=== PATIENT | male | born 2000 | race Caucasian/White ===

== ENCOUNTER 2020-10-22 17:00 | Emergency (ER) | payer BC ==
[2020-10-22 17:14] VITALS: BP 130/79; PULSE 89; RESP 16; TEMP 98.3
--- NOTE | 2020-10-22 17:46 | ED ---
ENT HPI - General Chief complaint: Dental/Oral Stated complaint: Post Op Bleeding Time Seen by Provider: 10/22/20 17:16 Source: patient, RN notes reviewed Mode of arrival: ambulatory Limitations: no limitations - History of Present Illness Initial comments: Patient is a 20-year-old male that presents to emergency department with lower lip bleeding. He notes that he recently had a biopsy done approximately 2 days ago at [facility] by Dr. Alexandro Johns. He noted that today his lip started bleeding so he thought some of the stitches might popped so he was on his way to the office and they said they're closing a 4:30 so they can emergency room just to get checked out. He was in no apparent distress or pain. He was playing with his lip with his hand tongue and teeth very frequently even after informing him that this could cause it to bleed more. He denied any chest pain first breath headache nausea vomiting diarrhea c onstipation fever fatigue chills. - Related Data Allergies Allergy/AdvReac Type Severity Reaction Status Date / Time amoxicillin Allergy Unknown Verified 10/22/20 17:14 Review of Systems ROS Statement: Those systems with pertinent positive or pertinent negative responses have been documented in the HPI. ROS Other: All systems not noted in ROS Statement are negative. Past Medical History Additional Past Medical History / Comment(s): DRY MOUTH History of Any Multi-Drug Resistant Organisms: None Reported Past Surgical History: Ear Surgery, Hernia Repair Past Psychological History: No Psychological Hx Reported Smoking Status: Never smoker Past Alcohol Use History: None Reported Past Drug Use History: None Reported General Exam Limitations: no limitations General appearance: alert, in no apparent distress Head exam: Present: atraumatic, normocephalic, normal inspection Eye exam: Present: normal appearance, PERRL, EOMI. Absent: scleral icterus, conjunctival injection, periorbital swelling ENT exam: Present: normal exam, mucous membranes moist, other (Patient has a well approximated surgical site on the inside of the lower lip that is nonblee ding at this time.) Neck exam: Present: normal inspection Respiratory exam: Present: normal lung sounds bilaterally. Absent: respiratory distress, wheezes, rales, rhonchi, stridor Cardiovascular Exam: Present: regular rate, normal rhythm, normal heart sounds. Absent: systolic murmur, diastolic murmur, rubs, gallop, clicks GI/Abdominal exam: Present: soft, normal bowel sounds. Absent: distended, tenderness, guarding, rebound, rigid Extremities exam: Present: normal inspection, full ROM, normal capillary refill. Absent: tenderness, pedal edema, joint swelling, calf tenderness Neurological exam: Present: alert, oriented X3, CN II-XII intact Psychiatric exam: Present: normal affect, normal mood Skin exam: Present: warm, dry, intact, normal color. Absent: rash Course Vital Signs 10/22/20 17:11 Temperature 98.3 F Pulse Rate 89 Respiratory 16 Rate Blood Pressure 130/79 O2 Sat by Pulse 99 Oximetry Medical Decision Making - Medical Decision Making Patient is a 20-year-old male with bleeding of the lip after procedure. Upon inspection lymph was not bleeding and appeared to be intact. Sutures appear to be intact. Patient was informed that he follow-up with the ear nose and throat facility tomorrow. Case discussed with Dr. Lee, patient can discharge home with follow-up to Dr. Alexandro Sweet Disposition Clinical Impression: Lip laceration Disposition: HOME SELF-CARE Condition: Stable Instructions (If sedation given, give patient instructions): Care For Your Stitches (ED) Additional Instructions: Please return to the Emergency Department if symptoms worsen or any other concerns. Follow-up with [facility] tomorrow. Avoid touching the lip, playing with her lip, touching her lip or tongue, biting her lip. If it starts to bleed minimally again apply pressure for several minutes. Is patient prescribed a controlled substance at d/c from ED?: No Referrals: Nonstaff,Physician [Primary Care Provider] - 1-2 days Time of Disposition: 17:45
== END 2020-10-22 18:05 | disposition home or self-care (01) ==
LOC: EC 17:00
DX: S01.511A Laceration without foreign body of lip, initial encounter (principal); X58.XXXA Exposure to other specified factors, initial encounter
CPT/HCPCS: 99282